=== PATIENT | female | born 1935 | race African-American/Black ===

== ENCOUNTER 2019-08-26 16:11 | Emergency (ER) | payer MEDICARE ==
[~2019-08-26] VITALS: Ht 165.1 cm; Wt 74.0 kg
[2019-08-26 16:49] LABS: BASOPHILS % 0.7 % (0.0-2.0); EOSINOPHILS % 1.8 % (0.0-5.0); HEMATOCRIT. 34.1 % (36.0-48.0); HEMOGLOBIN. 11.1 g/dL (12.0-16.0); LYMPHOCYTES % 28.6 % (20.0-50.0); MEAN CORPUSCULAR VOLUME 80.1 fL (81.0-99.0); MEAN PLATELET VOLUME 8.7 fl (7.4-10.4); MONOCYTES % 7.1 % (2.0-8.0); NEUTROPHILS % 61.8 % (40.0-76.0); PLATELET 280 x1000/uL (130-400); RED BLOOD CELL COUNT 4.26 mill/uL (4.2-5.4); RED CELL DISTRIBUTION WIDTH 14.6 % (11.6-14.6)
[2019-08-26 16:50] LABS: CHLORIDE 107 mEq/L (98-107)
[2019-08-26 16:51] LABS: PROTHROMBIN TIME 10.3 sec (9.6-11.0)
[2019-08-26 16:53] LABS: ETHANOL BLOOD < 10 mg/dL
[2019-08-26 16:57] LABS: LDL CHOLESTEROL 177 mg/dL (5-100)
[2019-08-26] MEDS ORDERED: ALTEPLASE IV STA (16:59)
[2019-08-26] MEDS ORDERED: ALTEPLASE 100MG/VIAL IV STA (16:59)
[2019-08-26] MEDS ORDERED: ASPIRIN 325MG EC TABLET PO ONE (17:15)
[2019-08-26] MEDS ORDERED: LABETALOL 5MG/ML SYR 20 MG/4 ML SYRINGE IV ONE (17:15)
[2019-08-26] MEDS ORDERED: *NO ASPIRIN X 24 HOURS XX SCH (17:18)
[2019-08-26 18:41] VITALS: BP 171/81
== END 2019-08-26 19:04 | disposition short-term general hospital (02) ==
LOC: ER 16:29 → CANBEDREQ 17:06 → ER 19:04
DX: I63.9 Cerebral infarction, unspecified (principal); E11.9 Type 2 diabetes mellitus without complications; I10 Essential (primary) hypertension; Z90.710 Acquired absence of both cervix and uterus
CPT/HCPCS: 36415; 70450; 71045; 80053; 80320; 83721; 84484; 85025; 85610; 93005; 96365; 96375; 99291; J2997; J3490; G0480

== ENCOUNTER 2022-12-05 16:27 | Inpatient (IN) | payer MEDICARE, MEDICAID ==
[~2022-12-05] VITALS: Ht 160 cm; Wt 66.7 kg
[2022-12-05] MEDS ORDERED: SODIUM CHLORIDE 0.9% 1,000 ML IV ONE ×2 (17:30→18:00)
[2022-12-05 19:31] LABS: BASOPHILS % 0.3 % (0.0-2.0); EOSINOPHILS % 2.3 % (0.0-5.0); HEMATOCRIT. 30.5 % (36.0-48.0); HEMOGLOBIN. 9.8 g/dL (12.0-16.0); LYMPHOCYTES % 26.6 % (20.0-50.0); MEAN CORPUSCULAR HEMOGLOBIN 26.9 pg (28.0-32.0); MEAN CORPUSCULAR VOLUME 83.6 fL (81.0-99.0); MEAN PLATELET VOLUME 8.7 fl (7.4-10.4); MONOCYTES % 6.4 % (2.0-8.0); NEUTROPHILS % 64.4 % (40.0-76.0); PLATELET 297 x1000/uL (130-400); RED BLOOD CELL COUNT 3.66 mill/uL (4.2-5.4); RED CELL DISTRIBUTION WIDTH 13.9 % (11.6-14.6)
[2022-12-05 19:40] LABS: CHLORIDE 113 mEq/L (98-107)
[2022-12-05] MEDS ORDERED: LORAZEPAM 0.5MG TABLET PO PRN (22:15)
[2022-12-05] MEDS ORDERED: GUAIFENESIN 200MG/10ML SUGAR FREE UDC PO PRN (22:15)
[2022-12-05] MEDS ORDERED: ZOLPIDEM TARTRATE 5MG TABLET PO PRN (22:15)
[2022-12-05] MEDS ORDERED: CLONIDINE 0.1MG TABLET PO PRN ×2 (22:15→23:15)
[2022-12-05] MEDS ORDERED: ONDANSETRON HCL 4MG/2ML INJ IV PRN ×2 (22:15→23:15)
[2022-12-05] MEDS ORDERED: IPRATROPIUM/ALBUTEROL 0.5-3(2.5)MG/3ML NEB HHN PRN (22:15)
[2022-12-05] MEDS ORDERED: DOCUSATE SODIUM 100MG CAPSULE PO PRN (22:15)
[2022-12-05] MEDS ORDERED: DEXTROSE 50% WATER 50ML SYRINGE IV PRN (22:45)
[2022-12-05] MEDS ORDERED: HYDROCODONE/ACETAMINOPHEN 5/325MG TABLET PO PRN (23:15)
[2022-12-05] MEDS ORDERED: MORPHINE SULFATE 2 MG/ML CPJ (NOT FOR IM USE) IV PRN (23:15)
[2022-12-05] MEDS ORDERED: LORAZEPAM 2MG/ML CPJ IV PRN (23:15)
[2022-12-05 23:26] LABS: CLARITY URINE TURBID (CLEAR); COLOR URINE YELLOW (YELLOW); KETONES URINE NEGATIVE (NEGATIVE); LEUKOCYTE ESTERASE URINE 3+ (NEGATIVE); NITRITE URINE NEGATIVE (NEGATIVE); OCCULT BLOOD URINE 1+ (NEGATIVE); PROTEIN URINE TRACE (NEGATIVE); SPECIFIC GRAVITY URINE 1.012 (1.005-1.030); UROBILINOGEN URINE 0.2 E.U./dL (0.2-1.0)
[2022-12-05] MEDS: AMLODIPINE 10MG TABLET PO SCH (23:30)
[2022-12-06 00:13] LABS: *AMPHETAMINES SCREEN URINE NEGATIVE (NEGATIVE); *BARBITURATES SCREEN URINE NEGATIVE (NEGATIVE); *BENZODIAZEPINES SCREEN URINE NEGATIVE (NEGATIVE); *COCAINE SCREEN URINE NEGATIVE (NEGATIVE); CANNABINOID URINE SCREEN NEGATIVE (NEGATIVE); METHADONE URINE SCREEN NEGATIVE (NEGATIVE); OPIATES URINE SCREEN NEGATIVE (NEGATIVE); PHENCYCLIDINE URINE SCREEN NEGATIVE (NEGATIVE)
[2022-12-06] MEDS ORDERED: SODIUM CHLORIDE 0.9% 1,000 ML IV ONE (01:00)
[2022-12-06 01:38] LABS: T4 FREE 1.2 ng/dL (0.76-1.46)
[2022-12-06 02:07] LABS: VITAMIN B12 SERUM 365 pg/mL (211-911)
[2022-12-06 04:46] LABS: BASOPHILS % 0.2 % (0.0-2.0); EOSINOPHILS % 1.4 % (0.0-5.0); HEMATOCRIT. 32.4 % (36.0-48.0); HEMOGLOBIN. 10.3 g/dL (12.0-16.0); LYMPHOCYTES % 24.1 % (20.0-50.0); MEAN CORPUSCULAR HEMOGLOBIN 26.4 pg (28.0-32.0); MEAN CORPUSCULAR VOLUME 83.4 fL (81.0-99.0); MEAN PLATELET VOLUME 8.4 fl (7.4-10.4); MONOCYTES % 7.1 % (2.0-8.0); NEUTROPHILS % 67.2 % (40.0-76.0); PLATELET 307 x1000/uL (130-400); RED BLOOD CELL COUNT 3.89 mill/uL (4.2-5.4); RED CELL DISTRIBUTION WIDTH 14.1 % (11.6-14.6)
[2022-12-06 05:02] LABS: CREATINE KINASE MB FRACTION 1.5 ng/mL (0.5-3.6)
[2022-12-06] MEDS: INSULIN LISPRO 100 UNITS/ML SUBCUT SCH ×4 (08:20→20:23)
[2022-12-06] MEDS: BLOOD SUGAR DIAGNOSTIC STRIP TEST SCH ×4 (09:00→19:53)
[2022-12-06] MEDS ORDERED: NITROFURANTOIN MACROCRYSTAL 25MG CAPSULE PO SCH (09:00)
[2022-12-06] MEDS: AMOXICILLIN/POTASSIUM CLAVULANATE 500/125MG TAB PO SCH ×2 (09:00→21:28)
[2022-12-06] MEDS: AMLODIPINE 10MG TABLET PO SCH (09:00)
[2022-12-06] MEDS: ENOXAPARIN 30MG/0.3ML SYR SUBCUT SCH (09:00)
[2022-12-06] MEDS: MULTIVITAMINS,THER W-MINERALS TABLET PO SCH (09:00)
[2022-12-06] MEDS ORDERED: NALOXONE HCL 0.4MG/ML VIAL IV PRN (15:30)
[2022-12-06 17:00] VITALS: BP 158/75
[2022-12-06] MEDS ORDERED: ATOR10TA69 MT (17:11)
[2022-12-06] MEDS ORDERED: AMLO2.5T45 MT (17:12)
[2022-12-06 18:00] VITALS: BP 158/75
[2022-12-06 20:00] VITALS: BP 155/60
[2022-12-06] MEDS: ATORVASTATIN CALCIUM 40MG TABLET PO SCH (21:28)
[2022-12-06 22:05] LABS: CREATINE KINASE MB FRACTION 1.5 ng/mL (0.5-3.6)
[2022-12-06] MEDS ORDERED: IPRATROPIUM BROMIDE (0.02%) 0.5MG/2.5ML NEB HHN PRN (23:30)
[2022-12-06] MEDS ORDERED: ALBUTEROL (0.083%) 2.5MG/3ML NEB HHN PRN (23:30)
[2022-12-07] VITALS: BP 127/68
[2022-12-07 04:00] VITALS: BP 114/55
[2022-12-07] MEDS: BLOOD SUGAR DIAGNOSTIC STRIP TEST SCH ×4 (05:42→20:26)
[2022-12-07] MEDS: INSULIN LISPRO 100 UNITS/ML SUBCUT SCH ×4 (05:42→20:26)
[2022-12-07 08:00] VITALS: BP 153/55
[2022-12-07] MEDS: MULTIVITAMINS,THER W-MINERALS TABLET PO SCH (09:14)
[2022-12-07] MEDS: AMOXICILLIN/POTASSIUM CLAVULANATE 500/125MG TAB PO SCH ×2 (09:14→20:26)
[2022-12-07] MEDS: AMLODIPINE 10MG TABLET PO SCH (09:15)
[2022-12-07] MEDS: ENOXAPARIN 30MG/0.3ML SYR SUBCUT SCH (09:16)
[2022-12-07 12:00] VITALS: BP 148/53
[2022-12-07 16:00] VITALS: BP 153/54
[2022-12-07 20:00] VITALS: BP 142/47
[2022-12-07] MEDS: ATORVASTATIN CALCIUM 40MG TABLET PO SCH (20:26)
[2022-12-08] VITALS (7 sets, daily range): BP systolic 105–145; BP diastolic 57–87
[2022-12-08] MEDS: BLOOD SUGAR DIAGNOSTIC STRIP TEST SCH ×4 (07:40→21:25)
[2022-12-08] MEDS: INSULIN LISPRO 100 UNITS/ML SUBCUT SCH ×4 (08:10→21:37)
[2022-12-08] MEDS: ENOXAPARIN 30MG/0.3ML SYR SUBCUT SCH (09:03)
[2022-12-08] MEDS: AMLODIPINE 5MG TABLET PO SCH (09:03)
[2022-12-08] MEDS: MULTIVITAMINS,THER W-MINERALS TABLET PO SCH (09:03)
[2022-12-08] MEDS: AMOXICILLIN/POTASSIUM CLAVULANATE 500/125MG TAB PO SCH ×2 (09:03→20:48)
[2022-12-08] MEDS: ATORVASTATIN CALCIUM 40MG TABLET PO SCH (20:48)
[2022-12-09] VITALS: BP 150/77
[2022-12-09 04:00] VITALS: BP 118/55
[2022-12-09] MEDS: BLOOD SUGAR DIAGNOSTIC STRIP TEST SCH ×2 (06:30→12:23)
[2022-12-09 07:37] LABS: BASOPHILS % 0.3 % (0.0-2.0); EOSINOPHILS % 2.6 % (0.0-5.0); HEMOGLOBIN. 9.2 g/dL (12.0-16.0); LYMPHOCYTES % 23.8 % (20.0-50.0); MEAN CORPUSCULAR HEMOGLOBIN 26.7 pg (28.0-32.0); MEAN CORPUSCULAR VOLUME 81.5 fL (81.0-99.0); MEAN PLATELET VOLUME 8.6 fl (7.4-10.4); MONOCYTES % 7.1 % (2.0-8.0); NEUTROPHILS % 66.2 % (40.0-76.0); PLATELET 280 x1000/uL (130-400); RED BLOOD CELL COUNT 3.43 mill/uL (4.2-5.4); RED CELL DISTRIBUTION WIDTH 13.8 % (11.6-14.6)
[2022-12-09 08:00] VITALS: BP 165/66
[2022-12-09] MEDS: INSULIN LISPRO 100 UNITS/ML SUBCUT SCH ×2 (08:02→13:09)
[2022-12-09] MEDS: AMLODIPINE 5MG TABLET PO SCH (09:08)
[2022-12-09] MEDS: MULTIVITAMINS,THER W-MINERALS TABLET PO SCH (09:08)
[2022-12-09] MEDS: ENOXAPARIN 30MG/0.3ML SYR SUBCUT SCH (09:08)
[2022-12-09] MEDS: AMOXICILLIN/POTASSIUM CLAVULANATE 500/125MG TAB PO SCH (09:08)
[2022-12-09 12:00] VITALS: BP 157/78
== END 2022-12-09 16:35 | DRG 641 ==
LOC: ER 16:27 → EDBEDREQTM 20:31 → EDBEDREQ 20:31 → EDBEDREQSVC 12-06 07:49 → ENRESERV 12-06 14:17 → 7WST 12-06 17:41
PROVIDERS: ADMIT Internal Medicine Nephrology; ATTEND Internal Medicine Nephrology
DX: R62.7 Adult failure to thrive (principal); N39.0 Urinary tract infection, site not specified; N17.9 Acute kidney failure, unspecified; E46 Unspecified protein-calorie malnutrition; F03.90 Unspecified dementia, unspecified severity, without behavioral disturbance, psychotic disturbance, mood disturbance, and anxiety; I11.0 Hypertensive heart disease with heart failure; E11.9 Type 2 diabetes mellitus without complications; E78.5 Hyperlipidemia, unspecified; I50.9 Heart failure, unspecified; D63.8 Anemia in other chronic diseases classified elsewhere; J44.9 Chronic obstructive pulmonary disease, unspecified; Z86.16 Personal history of COVID-19; Z74.01 Bed confinement status; Z86.73 Personal history of transient ischemic attack (TIA), and cerebral infarction without residual deficits; Z90.710 Acquired absence of both cervix and uterus; Z91.81 History of falling; Z68.26 Body mass index [BMI] 26.0-26.9, adult
CPT/HCPCS: 36415; 71045; 80048; 80053; 80061; 80305; 81003; 82550; 82553; 82607; 82746; 82962; 83036; 83605; 84439; 84443; 84484; 85025; 87077; 87186; 93306; 93970; 97162; 99285; C1893; J1650; J1815; J7030